=== PATIENT | female | born 1970 | race Caucasian/White ===

== ENCOUNTER 2022-08-29 17:03 | Emergency (ER) | payer BC, SELFPAY ==
--- NOTE | 2022-08-29 | CRLHL7_ITS ---
For Patients: As a result of the Century Cures Act, medical imaging exams and procedure reports are released immediately into your electronic medical record. You may view this report before your referring provider. If you have questions, please contact your health care provider. INDICATION: Postreduction TECHNIQUE: Three views of the right wrist COMPARISON: Radiograph 08/29/2022 at 525 p.m. FINDINGS: Bones: Interval reduction comminuted mildly displaced fracture of the distal radius. Alignment is near anatomic. Ulnar styloid fracture is not well evaluated. Joint spaces: Unremarkable. Soft tissues: Soft tissue swelling. Overlying splint on the 3rd view IMPRESSION: Interval reduction of comminuted intra-articular fracture of the distal radius. Alignment is near anatomic. Dictated by Carlito Kevin MD @ 08/29/2022 8:15:56 PM (Electronically Signed)
[2022-08-29 17:09] VITALS: BP 171/102; PULSE 63; RESP 22; TEMP 37.1; O2SAT 97; BMI 48.0
--- NOTE | 2022-08-29 17:17 | CRLHL7_ITS ---
For Patients: As a result of the Cures Act, medical imaging exams and procedure reports are released immediately into your electronic medical record. You may view this report before your referring provider. If you have questions, please contact your health care provider. Indication: Injury and pain Technique: Right wrist 3 view Comparison: None Findings: Bones: Acute complete comminuted fracture with anterior displacement of the distal fracture fragments with intra-articular extension of the distal radius. Ulnar styloid avulsion fracture. Soft tissues: Diffuse soft tissue edema. Impression: Acute complete comminuted fracture with anterior displacement of the distal fracture fragments with intra-articular extension of the distal radius. Ulnar styloid avulsion fracture. Dictated by John Hoskins MD @ 08/29/2022 6:21:40 PM (Electronically Signed)
--- NOTE | 2022-08-29 17:18 | ED.UPPEXIN ---
HPI - Extremity Injury (Upper) General Chief Complaint: Extremity Pain/Injury, Upper Stated Complaint: Fell Wrist Injury Time Seen by Provider: 08/29/22 17:14 History of Present Illness HPI narrative: This 51-year-old female comes in with an injury to her right wrist. She fell just prior to arrival onto her outstretched right hand. She has pain at her right wrist. She does not report any other injury. She did not hit her head or have loss of consciousness. Related Data Home Medications Medication Instructions Recorded Confirmed modafinil 200 mg tablet (Provigil) 400 mg PO DAILY 08/29/22 08/29/22 Previous Rx's Medication Instructions Recorded amoxicillin 500 mg capsule 1,000 mg (2 x 500 mg) PO QDAY #20 07/05/22 caps prednisone 20 mg tablet 40 mg (2 x 20 mg) PO QDAY #10 tabs 07/05/22 hydrocodone 5 mg-acetaminophen 325 1 tab PO Q4-6H PRN pain #24 tabs 08/29/22 mg tablet Allergies Allergy/AdvReac Type Severity Reaction Status Date / Time No Known Drug Allergies Allergy Verified 07/05/22 09:53 Review of Systems Status of ROS: Reports: 10 or more systems reviewed and unremarkable except as noted in History and below Narrative: Constitutional: No fevers, no weight gain or loss. Eyes: No discharge. No vision changes. HENT: No congestion, no sore throat, no ear pain. Cardiovascular: No chest pain, no palpitations. Respiratory: No shortness of breath, no wheezes, no cough. Gastrointestinal: No abdominal pain, no vomiting, no diarrhea. Genitourinary: No dysuria, no hematuria. Musculoskeletal: Right wrist injury as described above. Skin: No rashes, no pruritis. Neurological: No dizziness, weakness, sensory change, speech change. Endo/Heme/Allergies: No bruising or bleeding. No polydipsia. Pysch: no suicidality, no anxiety, no insomnia. All other systems reviewed and are negative. [facility] Social History Smoking Status: Never smoker Exam Narrative: Exam Narrative: Constitutional: Well-developed, well-nourished, no acute distress. HEENT: Normocephalic, atraumatic. Neck: Normal range of motion. Nontender. Supple. Heart: Intact distal pulses. Lungs: No chest discomfort. No wheezes, rhonchi, or rales. Abdomen: Nontender. Back: Normal range of motion. Extremities: Pain at the right wrist with slight evidence of deformity. She is moving her fingers normally. Skin: Intact. No rash. Warm. No erythema or pallor. Neurologic: No altered sensation. No weakness. Alert and oriented. Psychiatric: No suicidality. No anxiety or depression. No insomnia. Nursing notes and vitals signs are reviewed. Const: Vital Signs, click to edit/add: Vital Signs - 24 hr 08/29/22 17:09 Temperature 98.7 F Pulse Rate [Pulse Oximeter] 63 Respiratory Rate 22 Blood Pressure [Le ft Upper Arm] 171/102 H Pulse Oximetry 97 Oxygen Delivery Me thod Room Air Course Vital Signs Vital signs: Initial Vital Signs Temperature 98.7 F 08/29/22 17:09 Temperature Source Temporal Artery Scan 08/29/22 17:09 Pulse Rate 63 08/29/22 17:09 Respiratory Rate 22 08/29/22 17:09 Blood Pressure 171/102 H 08/29/22 17:09 Blood Pressure Mean 125 H 08/29/22 17:09 Blood Pressure Position Sitting 08/29/22 17:09 Pulse Oximetry 97 08/29/22 17:09 Oxygen Delivery Method Room Air 08/29/22 17:09 Vital Signs Temperature 98.7 F 08/29/22 17:09 Pulse Rate 63 08/29/22 17:09 Respiratory Rate 22 08/29/22 17:09 Blood Pressure 171/102 H 08/29/22 17:09 Pulse Oximetry 97 08/29/22 17:09 Oxygen Delivery Method Room Air 08/29/22 17:09 Temperature 98.7 F 08/29/22 17:09 Pulse Rate 63 08/29/22 17:09 Respiratory Rate 22 08/29/22 17:09 Blood Pressure 171/102 H 08/29/22 17:09 Pulse Oximetry 97 08/29/22 17:09 Oxygen Delivery Method Room Air 08/29/22 17:09 MDM - Extremity Injury (Upper) MDM Narrative Medical decision making narrative: This 51-year-old female comes in with an injury to her right wrist. X-ray imaging shows distal radius and ulnar fracture with complete displacement anteriorly of the distal component typical of a Mitchell fracture. An IV was established where the patient did receive Dilaudid 0.5 mg and Zofran 4 mg. This fracture needs to be reduced and will need surgery for more definitive management. I described options for for pain relief for the process of reducing the fracture. The patient agreed to have propofol sedation. She did eat a granola bar about 4 hours prior to this time of sedation. Dr. Paul assisted in this procedure. After acquiring informed consent with explanation of benefits and risks the patient did receive 100 mg of propofol. This provided adequate sedation enabling me to reduce the fracture. X-ray imaging shows a significant improvement of the position of the bones. The patient was placed in a sugar-tong splint and in a sling. She is instructed to follow-up with orthopedic clinic this next week. A prescription for [place] is provided. Imaging Data XR R Wrist: Radiologist's impression: Acute complete comminuted fracture with anterior displacement of the distal fracture fragments with intra-articular extension of the distal radius. Ulnar styloid avulsion fracture. Discharge Plan Discharge Clinical Impression: Mitchell fracture of radius Patient Disposition: Home w/ Parent or Adult Condition: Improved Additional Instructions: Wear sling and splint. Take medication as needed and directed. Follow-up with orthopedic clinic next week. Call [phone] for appointment. Return if worsening. Prescriptions: New hydrocodone-acetaminophen 5-325 mg tablet 1 tab PO Q4-6H PRN (Reason: pain) Qty: 24 0RF No Action amoxicillin 500 mg capsule 1,000 mg PO QDAY Qty: 20 0RF prednisone 20 mg tablet 40 mg PO QDAY Qty: 10 0RF modafinil [Provigil] 200 mg tablet 400 mg PO DAILY Follow Up/Referrals: Fide French PA-C [Primary Care Provider] - Stand Alone [facility] Info Instructions
[2022-08-29] MEDS: HYDROmorphone 0.5 mg/0.5 ml inj IVP (19:03)
[2022-08-29] MEDS: ONDANSETRON 2 MG/ML inj 4 MG IVP (19:03)
[2022-08-29] MEDS: PROPOFOL 10 MG/ML INJ 200 MG IV (19:43)
[2022-08-29 19:48] VITALS: BP 158/84; PULSE 69; RESP 18; O2SAT 96
[2022-08-29 19:49] VITALS: BP 143/78; PULSE 60; RESP 18; O2SAT 98
[2022-08-29 20:17] VITALS: O2SAT 98
== END 2022-08-29 20:12 | disposition home or self-care (01) ==
PROVIDERS: Emergency Provider Emergency Medicine Emergency Medical Services; PCP Physician Assistant Medical
DX: S52.541A Smith's fracture of right radius, initial encounter for closed fracture (principal); W19.XXXA Unspecified fall, initial encounter
CPT/HCPCS: 25605; 73100; 73110; 96374; 96375; 99152; 99153; 99284; 99285; J1170; J2405; J2704

== ENCOUNTER 2022-11-20 15:30 | Outpatient (RCR) | payer BC, SELFPAY | END 2023-03-04 17:16 | disposition home or self-care (01) | PROVIDERS: PCP Physician Assistant Medical; Visit Provider Orthopaedic Surgery | DX: S52.501A Unspecified fracture of the lower end of right radius, initial encounter for closed fracture (principal); Z98.890 Other specified postprocedural states; Z87.81 Personal history of (healed) traumatic fracture; Z51.89 Encounter for other specified aftercare | CPT/HCPCS: 97140; 97165 ==